=== PATIENT | male | born 1945 | race Caucasian/White ===

== ENCOUNTER → 2016-11-26 | Outpatient (CLI) | payer MEDICARE ==
[~2016-11-26] VITALS: Ht 182.9 cm; Wt 97.5 kg
[~2016-11-26] MED LIST: ASPI1TAB PO; GLUC1CAP10 PO; MULT1TAB10 PO; NS 1,000 ML IV SCH; PRAV40TA2 PO
--- NOTE | 2016-11-26 08:08 | ROOR ---
Patient Name: Flora Ramachandran Procedure Date: 11/26/2016 7:13 AM Date of : 1945 Age: 71 Room: [facility] Gender: Male Note Status: Finalized Procedure: Colonoscopy to Cecum + Cold Snare Polypectomy + Hemoclips Indications: Last colonoscopy: 2007, Heme positive stool Providers: Austin Rodriguez MD Referring MD: Tianna Coreas DO Requesting Provider: Medicines: Monitored Anesthesia Care Complications: No immediate complications. Procedure: Pre-Anesthesia Assessment: - The heart rate, respiratory rate, oxygen saturations, blood pressure, adequacy of pulmonary ventilation, and response to care were monitored throughout the procedure. The Colonoscope was introduced through the anus and advanced to the cecum, identified by appendiceal orifice and ileocecal valve. The colonoscopy was performed without difficulty. The patient tolerated the procedure well. The quality of the bowel preparation was excellent. Findings: The perianal and digital rectal examinations were normal. Non-bleeding external internal hemorrhoids were found during retroflexion. The hemorrhoids were moderate and Grade II (internal hemorrhoids that prolapse but reduce spontaneously). A small polyp was found in the mid ascending colon. The polyp was sessile. The polyp was removed with a cold snare. Resection and retrieval were complete. A small polyp was found in the hepatic flexure. The polyp was sessile. The polyp was removed with a cold snare. Resection and retrieval were complete. A medium polyp was found at 50 cm proximal to the anus. The polyp was sessile. The polyp was removed with a cold snare. Resection and retrieval were complete. To prevent bleeding after the polypectomy, two hemostatic clips were successfully placed (MR conditional). There was no bleeding at the end of the procedure. The exam was otherwise without abnormality on direct and retroflexion views. Impression: - Non-bleeding external internal hemorrhoids. - One small polyp in the mid ascending colon, removed with a cold snare. Resected and retrieved. - One small polyp at the hepatic flexure, removed with a cold snare. Resected and retrieved. - One medium polyp at 50 cm proximal to the anus, removed with a cold snare. Resected and retrieved. Clips (MR conditional) were placed. - The examination was otherwise normal on direct and retroflexion views. - The exam was otherwise normal to the cecum. Recommendation: - Patient has a contact number available for emergencies. The signs and symptoms of potential delayed complications were discussed with the patient. Return to normal activities tomorrow. Written discharge instructions were provided to the patient. - High fiber diet. - Discharge patient to home. - Continue present medications. - Await pathology results. - Telephone GI clinic for pathology results in 1 week. - Repeat colonoscopy in 5 years for surveillance based on pathology results. - Return to referring physician. - The findings and recommendations were discussed with the patient's family. Austin Rodriguez MD Austin Rodriguez MD 11/26/2016 8:08:00 AM This report has been signed electronically. Number of Addenda: 0 Note Initiated On: 11/26/2016 7:13 AM Estimated Blood Loss: Estimated blood loss: none.
[2016-11-26 08:35] VITALS: BP 123/78
== END ==
LOC: M OPP 07:03
PROVIDERS: ATTEND Internal Medicine Gastroenterology
DX: R19.5 Other fecal abnormalities (principal); D12.2 Benign neoplasm of ascending colon; D12.3 Benign neoplasm of transverse colon; D12.5 Benign neoplasm of sigmoid colon; K64.1 Second degree hemorrhoids; E78.5 Hyperlipidemia, unspecified; M48.00 Spinal stenosis, site unspecified; R42 Dizziness and giddiness; R06.83 Snoring; Z90.5 Acquired absence of kidney; M65.322 Trigger finger, left index finger; Z79.82 Long term (current) use of aspirin; Z79.899 Other long term (current) drug therapy; Z80.42 Family history of malignant neoplasm of prostate

== ENCOUNTER 2017-05-08 08:30 | Outpatient (RCR) | payer MEDICARE ==
[~2017-05-08 08:30] MED LIST changes: -NS 1,000 ML IV SCH
== END 2017-05-11 ==
LOC: M OT 08:30
PROVIDERS: ATTEND Physician Assistant
DX: Z51.89 Encounter for other specified aftercare (principal); M65.332 Trigger finger, left middle finger; M65.322 Trigger finger, left index finger
CPT/HCPCS: 97140; 97165; G8984; G8985

== ENCOUNTER 2017-05-29 08:30 | Outpatient (RCR) | payer MEDICARE | END 2017-06-11 | LOC: M OT 08:30 | PROVIDERS: ATTEND Physician Assistant | DX: Z51.89 Encounter for other specified aftercare (principal); M65.332 Trigger finger, left middle finger; M65.322 Trigger finger, left index finger | CPT/HCPCS: 97022; 97035; 97140; G8984; G8985; G8986 ==

== ENCOUNTER → 2017-07-11 | Outpatient (RCR) | payer MEDICARE | LOC: M OT 07-09 10:49 | PROVIDERS: ATTEND Physician Assistant | DX: M65.332 Trigger finger, left middle finger (principal) | CPT/HCPCS: 97110; 97140; 97165; G8984; G8985 ==

== ENCOUNTER 2017-07-16 11:07 | Outpatient (RCR) | payer MEDICARE | END 2017-08-11 | LOC: M OT 11:07 | DX: Z51.89 Encounter for other specified aftercare (principal); M65.332 Trigger finger, left middle finger; M65.322 Trigger finger, left index finger | CPT/HCPCS: 97110 ==

== ENCOUNTER → 2020-01-25 | Outpatient (CLI) | payer MEDICARE ==
[~2020-01-25] MED LIST changes: -ASPI1TAB PO; +ASPI81TA26 PO
--- NOTE | 2020-01-28 11:07 | SLEEPCENT ---
DATE OF PROCEDURE: 01/25/2020 INTERPRETATION: Nocturnal polysomnography was performed for evaluation of sleep physiology in this patient with history of excessive somnolence and nonrestorative sleep. 7 hours and 46 minutes of data were reviewed. There were 365 minutes of sleep identified. Sleep latency was prolonged at 48.5 minutes. REM latency was short at 53 minutes sleep architecture showed fragmentation. There were four REM cycles noted. Overall sleep efficiency was 79.4%. The patient's electrocardiogram shows sinus rhythm with occasional ectopy and an average heart rate is 54 beats per minute. EEG showed fairly normal waveforms for awake and sleep. There were 289 respiratory events identified of 10 seconds in duration or greater for an apnea-hypopnea index of 47.5, 58 of these events were mixed or central apneas and they were not exclusive to sleep stage nor body posture. Arousals from respiratory events occurred 10 times per hour and oxygen desaturations were seen into the low 80s. There was some activity in the limb leads noted. Limb movement arousal index was only 1.3. IMPRESSION: Severe obstructive sleep apnea syndrome (G47.33). Apnea-hypopnea index 47.5. RECOMMENDATIONS: The patient should be encouraged to return to the sleep disorder center for pressure therapy. In the interim alcohol, and sedative avoidance should be practiced and caution exercised during the operation of motor vehicles.
== END ==
LOC: M SLEEP 20:00
PROVIDERS: ATTEND Nurse Practitioner Family
DX: G47.33 Obstructive sleep apnea (adult) (pediatric) (principal)

== ENCOUNTER → 2020-02-14 | Outpatient (CLI) | payer MEDICARE ==
--- NOTE | 2020-02-25 16:43 | SLEEPCENT ---
DATE OF PROCEDURE: 02/14/2020 ORDERED BY: ARELY Pruett Nocturnal polysomnography was performed for the titration of pressure therapy in this patient with obstructive sleep apnea syndrome. Apnea-hypopnea index of 47.5. For testing a ResMed Quattro full-face mask of medium size was used; 4 cm of water pressure were applied to the circuit and the lights were extinguished. 6 hours and 44 minutes of data were reviewed. There were 304 minutes of sleep identified. Sleep latency was short at 11.5 minutes. Rapid eye movement (REM) latency was short at 34 minutes. Sleep architecture was good with 6 REM cycles. Overall sleep efficiency was 76.3%. The patient's electrocardiogram showed a sinus rhythm with an average heart rate of 54 beats per minute. Electroencephalogram (EEG) showed normal waveforms for awake and sleep. Respiratory events were fully palliated with CPAP at a pressure of +10. Remaining measures of sleep physiology were normal. IMPRESSION: Obstructive sleep apnea syndrome (G47.33). RECOMMENDATIONS: Nightly use of pressure therapy 10 cm of water.
== END ==
LOC: M SLEEP 20:00
PROVIDERS: ATTEND Nurse Practitioner Family
DX: G47.33 Obstructive sleep apnea (adult) (pediatric) (principal)

== ENCOUNTER → 2020-05-20 | Outpatient (CLI) | payer MEDICARE ==
[~2020-05-20] MED LIST changes: +CALTTAB6 PO; +MULTCAP PO; +PRED5PAK PO
== END ==
LOC: M LABSMTC 12:31
PROVIDERS: ATTEND Anesthesiology
DX: Z01.812 Encounter for preprocedural laboratory examination (principal); Z20.828 Contact with and (suspected) exposure to other viral communicable diseases
CPT/HCPCS: C9803; U0003

== ENCOUNTER 2020-05-25 10:47 | Day surgery (SDC) | payer MEDICARE ==
[~2020-05-25] VITALS: Ht 182.9 cm; Wt 99.8 kg
[~2020-05-25 10:47] MED LIST changes: +NS 1,000 ML IV ONE
[2020-05-25] MEDS ORDERED: propofoL 200 MG/20 ML VIAL As Ordered ONE ×2 (11:36→11:57)
[2020-05-25] MEDS ORDERED: LIDOCAINE 2% 100MG/5ML SDV (FOR ANES.) As Ordered ONE (11:36)
--- NOTE | 2020-05-25 12:22 | ROOR ---
Patient Name: Agapito Ramachandran Procedure Date: 05/25/2020 11:54 AM Date of : 1945 Age: 75 Room: [facility] Gender: Male Note Status: Finalized Procedure: Total Colonoscopy to Cecum + Cold Snare Polypectomy + Hemoclip Indications: High risk colon cancer surveillance: Personal history of colonic polyps, Last colonoscopy: 2016 Providers: Austin Rodriguez MD Referring MD: Mine Aldrich NP Requesting Provider: Medicines: Monitored Anesthesia Care Complications: No immediate complications. Procedure: Pre-Anesthesia Assessment: - The heart rate, respiratory rate, oxygen saturations, blood pressure, adequacy of pulmonary ventilation, and response to care were monitored throughout the procedure. The Colonoscope was introduced through the anus and advanced to the cecum, identified by appendiceal orifice and ileocecal valve. The colonoscopy was performed without difficulty. The patient tolerated the procedure well. The quality of the bowel preparation was excellent. Findings: The perianal and digital rectal examinations were normal. Non-bleeding internal hemorrhoids were found during retroflexion. The hemorrhoids were small and Grade I (internal hemorrhoids that do not prolapse). A small polyp was found at 20 cm proximal to the anus. The polyp was sessile. The polyp was removed with a cold snare. Resection and retrieval were complete. To prevent bleeding after the polypectomy, one hemostatic clip was successfully placed (MR conditional). There was no bleeding at the end of the procedure. A small polyp was found in the cecum. The polyp was sessile. The polyp was removed with a cold snare. Resection and retrieval were complete. The exam was otherwise without abnormality on direct and retroflexion views. Impression: - Non-bleeding internal hemorrhoids. - One small polyp at 20 cm proximal to the anus, removed with a cold snare. Resected and retrieved. Clip (MR conditional) was placed. - One small polyp in the cecum, removed with a cold snare. Resected and retrieved. - The examination was otherwise normal on direct and retroflexion views. - The exam was otherwise normal to the cecum. Recommendation: - Patient has a contact number available for emergencies. The signs and symptoms of potential delayed complications were discussed with the patient. Return to normal activities tomorrow. Written discharge instructions were provided to the patient. - High fiber diet. - Discharge patient to home. - Continue present medications. - Await pathology results. - Telephone GI clinic for pathology results in 1 week. - Repeat colonoscopy for surveillance based on pathology results. - Return to referring physician. - The findings and recommendations were discussed with the patient. Austin Rodriguez MD Austin Rodriguez MD 05/25/2020 12:21:12 PM Electronically signed by Austin Rodriguez MD Number of Addenda: 0 Note Initiated On: 05/25/2020 11:54 AM Estimated Blood Loss: Estimated blood loss: none.
[2020-05-25 12:40] VITALS: BP 135/77
== END 2020-05-25 12:55 | disposition home or self-care (01) ==
LOC: M OPP 10:47
PROVIDERS: ATTEND Internal Medicine Gastroenterology
DX: Z12.11 Encounter for screening for malignant neoplasm of colon (principal); Z86.010 Personal history of colon polyps; D12.6 Benign neoplasm of colon, unspecified; K64.0 First degree hemorrhoids; G47.30 Sleep apnea, unspecified; Z79.899 Other long term (current) drug therapy

== ENCOUNTER → 2024-03-05 | Outpatient (CLI) | payer MEDICARE ==
[~2024-03-05] MED LIST changes: -NS 1,000 ML IV ONE
== END ==
LOC: M PLAIMG 06:52
PROVIDERS: ATTEND Student in an Organized Health Care Education/Training Program
DX: S76.811A Strain of other specified muscles, fascia and tendons at thigh level, right thigh, initial encounter (principal); S76.011A Strain of muscle, fascia and tendon of right hip, initial encounter; M16.11 Unilateral primary osteoarthritis, right hip; Y93.9 Activity, unspecified; Y92.9 Unspecified place or not applicable

== ENCOUNTER → 2024-04-10 | Outpatient (CLI) | payer MEDICARE ==
[~2024-04-10] MED LIST changes: +ISOVUE-300 61% 100ML VIAL As Ordered ONE; +LIDOCAINE 1% MDV 20ML VIAL As Ordered ONE; +TRIAMCINOLONE ACETONIDE SUSP 40MG/ML 1ML VIAL As Ordered ONE
== END ==
LOC: M RAD 14:37
PROVIDERS: ATTEND Orthopaedic Surgery
DX: M16.11 Unilateral primary osteoarthritis, right hip (principal)
CPT/HCPCS: 20610; 77002; J3301; Q9967

== ENCOUNTER → 2024-04-23 | Outpatient (CLI) | payer MEDICARE ==
[~2024-04-23] MED LIST changes: -ISOVUE-300 61% 100ML VIAL As Ordered ONE; -LIDOCAINE 1% MDV 20ML VIAL As Ordered ONE; -TRIAMCINOLONE ACETONIDE SUSP 40MG/ML 1ML VIAL As Ordered ONE
== END ==
LOC: M PLAIMG 08:58
PROVIDERS: ATTEND Orthopaedic Surgery
DX: M48.061 Spinal stenosis, lumbar region without neurogenic claudication (principal); M51.26 Other intervertebral disc displacement, lumbar region; M47.816 Spondylosis without myelopathy or radiculopathy, lumbar region; M47.817 Spondylosis without myelopathy or radiculopathy, lumbosacral region